=== PATIENT | male | born 1965 | race Caucasian/White ===

== ENCOUNTER 2021-12-24 11:15 | Emergency (ER) | payer OTHER, BC ==
[2021-12-24 11:26] VITALS: BP 123/97; PULSE 72; TEMP 97.8; BMI 26.4
[2021-12-24] MEDS ORDERED: LIDOCAINE 5% TOPICAL PATCH TP ONE (11:35)
[2021-12-24] MEDS ORDERED: ACETAMINOPHEN 325 MG TABLET (FP) PO ONE (11:35)
[2021-12-24] MEDS ORDERED: LIDOCAINE 5% TOPICAL PATCH ONE (11:40)
[2021-12-24] MEDS ORDERED: ACETAMINOPHEN 325 MG TABLET (FP) ONE (11:40)
[2021-12-24] MEDS ORDERED: LIDOCAINE PATCH REMOVAL MC SCH (22:00)
== END 2021-12-24 12:40 | disposition home or self-care (01) ==
LOC: FER 11:15
DX: R07.82 Intercostal pain (principal)
CPT/HCPCS: 71101-TC-RT-FY; 99284-25